=== PATIENT | male | born 1955 | race Caucasian/White ===

== ENCOUNTER 2017-08-30 11:02 | Emergency (ER) | payer OTHER ==
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
[2017-08-30 11:41] LABS: PLATELET COUNT 268 10^3/uL (150-400)
[2017-08-30 13:40] VITALS: BP 144/88
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
== END 2017-08-30 13:39 | disposition home or self-care (01) ==
DX: S06.5X0A Traumatic subdural hemorrhage without loss of consciousness, initial encounter (principal); F07.81 Postconcussional syndrome; V48.5XXA Car driver injured in noncollision transport accident in traffic accident, initial encounter; Y92.410 Unspecified street and highway as the place of occurrence of the external cause; Y99.8 Other external cause status; Y93.89 Activity, other specified
CPT/HCPCS: 82947-QW